=== PATIENT | male | born 1945 | race Caucasian/White ===

== ENCOUNTER 2018-10-28 17:44 | Emergency (ER) | payer MEDICARE, OTHER ==
--- OUTSIDE RECORDS SUMMARY | 2018-10-28 17:53 | XMS REPORT | Continuity of Care Document ---
:1945 External Reference #:[id number] Author Name Ander Bowden MD Address [address] [place] [address] Care Team Providers Name Role Phone Rosas HODGSON, Estrellita Care Team Information Remediation Consultant Unavailable Sunday Carbajal M.D. Primary Care Physician Unavailable Payers Date Identification Numbers Payment Provider Subscriber Effective: Policy Number: [id number] [place] Rei Larson 2018 PayID: [id number] [address] [place] [address] Policy Number: [id number] [employer] Rei Larson Group Number: [id number] [id number] Group Name: [id number] [place] [address] PayID: [id number] Problems Active Problems Provider Date Essential hypertension Ander Bowden MD Onset: 01/31/2009 Family History Date Family Member(s) Observation Comments General Allergies General Cancer General Diabetes General Hearing Loss General Heart Attack General Migraine Social History Type Date Description Comments Sex Unknown Occupation Retired Tobacco Use Start: Unknown Never Smoked Cigarettes Tobacco Use Start: Unknown Never Smoked Cigars Tobacco Use Start: Unknown Never Smoked A Pipe Smokeless Tobacco Never Used Smokeless Tobacco ETOH Use Currently occasionally consumes alcohol Tobacco Use Start: Unknown Patient has never smoked Smoking Status Reviewed: 10/27/18 Patient has never smoked Allergies, Adverse Reactions, Alerts Active Allergies Reaction Severity Comments Date Acetomenophen 01/31/2009 Codeine Sulfate sick 01/31/2009 Tramadol HCL anaphylactic shock Shock 01/31/2009 Adhesives blisters 10/27/2018 Medications Active Medications SIG Qnty Indications Ordering Provider Date Simvastatin 1 by mouth every Unknown 10mg Tablets day Lisinopril 1 by mouth every Sunday Carbajal, 10mg Tablets day M.DLeonardo Metformin HCL Sunday Carbajal, 500mg M.D. Tablets Januvia Sunday Carbajal, 50mg Tablets M.D. History Medications Zocor Unknown - 10/26/2018 Glucophage Unknown - 10/26/2018 Multiple Vitamins Daily Unknown - 10/26/2018 Vital Signs Date Vital Result Comment 10/27/2018 9:47am Weight 150.00 lb Weight 68.040 kg Height 66 inches 5'6" Height in cm's 167.6 cm BMI (Body Mass Index) 24.2 kg/m2 01/31/2009 9:04am BP Systolic 113 mmHg BP Diastolic 79 mmHg Heart Rate 66 /min Respiratory Rate 16 /min Procedures Date Code Description Status 10/27/2018 92037 Fiberoptic Laryngoscopy Completed 01/31/2009 58407 Tympanometry Completed 01/31/2009 81223 Comprehensive Audiogram Completed Encounters Type Date Location Provider Dx Diagnosis Office Visit 10/27/2018 [place] Ander Monk G47.33 Obstructive sleep 9:45a 05/31/07 MD Denn[place] apnea (adult) (pediatric) J34.2 Deviated nasal septum Office 01/31/2009 [place],After Ander Monk 401.9 High Blood Pressure Or Visit 9:00a 05/31/07 MD Denn[place] Hypertension/Unspecified 388.31 Tinnitus, Subjective 389.10 Hearing Loss, Sensorineural/Unspecified
--- OUTSIDE RECORDS SUMMARY | 2018-10-28 17:53 | XMS REPORT | Continuity of Care Document ---
:1945 External Reference #:[id number] Author Name Yvette Kaminski Care Team Providers Name Role Phone Sunday Carbajal MD Primary Care Physician Unavailable Payers Date Identification Numbers Payment Provider Subscriber Policy Number: [id number] Medicare Rei Larson PayID: [id number] [address] [place] [address] Effective: 2013 Policy Number: [id number] [facility] Rei Larson Group Number: [id number] [address] PayID: [id number] [place] [address] Advance Directives Description No Information Available Problems Active Problems Provider Date Premature beats Anthony Morgan M.D. Onset: 06/15/2013 Palpitations Anthony Morgan M.D. Onset: 06/15/2013 Obstructive sleep apnea syndrome Estrellita Pillai DNP, RN, ROBER-BC Onset: Gastroesophageal reflux disease Estrellita Pillai DNP, RN, ROBER-BC Onset: 06/18 Bradycardia Estrellita Pillai DNP, RN, OSTOMY RN-BC Onset: 10/11/2015 Note: Pt reports pulse is always low and recent findings in the 30s noted several months ago. 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 Family History Date Family Member(s) Observation Comments General non contributory Father Colon cancer at age 62 Mother Alzheimer's Disease Siblings 3 younger siblings Social History Type Date Description Comments Sex Unknown Marital Status Single Lives With Alone Occupation counselor Tobacco Use Start: Unknown Never Smoked Cigarettes Smoking Status Reviewed: 10/11/18 Never Smoked Cigarettes ETOH Use Occasionally consumes alcohol ETOH Use Glass of wine a day @ most Tobacco Use Start: Unknown Patient has never smoked Recreational Drug Use Denies Drug Use Exercise Type/Frequency Exercises regularly treadmill x 45 minutes, weight machines Allergies, Adverse Reactions, Alerts Active Allergies Reaction Severity Comments Date Tramadol Anaphylaxis Severe 06/15/2013 Adhesives blisters 06/15/2013 Medications Active Medications SIG Qnty Indications Ordering Provider Date Metformin HCL two tabs two Unknown 02/05/2015 500mg times a day by mouth Lisinopril 1 po qd 90tabs Unknown 10mg Tablets Simvastatin 1 po qhs 90tabs Unknown 10mg Tablets Januvia 1 by mouth Unknown 50mg Tablets every day History Medications Aspirin 1 po qd Unknown - 81mg Tablets 08/23/2018 Multivitamins 1 capsule barry;y 30caps Unknown - Capsules 06/29/2017 Metoprolol Succinate ER 1/2 po qd 90tabs Unknown - 25mg 06/08/2013 Tablets ER 24HR Ibuprofen 200 400 mg every 6 hours Unknown - 200mg Tablets as needed for pain. 09/27/2017 Medications Administered in Office Medication SIG Qnty Indications Ordering Provider Date Technetium TC 99M TetrofAnthony stahl M.D. 07/11/2014 Per Unit Dose Up To 40 Millicuries Injection Depomedrol 80MG Kwame Fuentes M.D. 02/25/2012 Injection Immunizations CPT Code Status Date Vaccine Lot # [id number] Given 06/18/2015 Fluvirin Im 3Yrs And Older Vital Signs Date Vital Result Comment 10/11/2018 11:04am Height 66 inches 5'6" Weight 147.00 lb Heart Rate 60 /min BP Systolic Sitting 106 mmHg right upper arm regular cuff BP Diastolic Sitting 60 mmHg right upper arm regular cuff Respiratory Rate 12 /min O2 % BldC Oximetry 99 % BMI (Body Mass Index) 23.7 kg/m2 08/24/2018 3:40pm Height 66 inches 5'6" Weight 149.00 lb with shoes Heart Rate 60 /min BP Systolic Sitting 112 mmHg Lue reg cuff BP Diastolic Sitting 70 mmHg Lue reg cuff BP Systolic Standing 110 mmHg Lue reg cuff BP Diastolic Standing 70 mmHg Lue reg cuff Respiratory Rate 16 /min BMI (Body Mass Index) 24.0 kg/m2 09/28/2017 11:03am Height 66 inches 5'6" Weight 154.00 lb Heart Rate 64 /min BP Systolic Sitting 112 mmHg BP Diastolic Sitting 72 mmHg Respiratory Rate 14 /min O2 % BldC Oximetry 99 % BMI (Body Mass Index) 24.9 kg/m2 06/30/2017 1:03pm Height 66 inches 5'6" Weight 153.00 lb No shoes Heart Rate 68 /min BP Systolic Sitting 126 mmHg Lue reg cuff BP Diastolic Sitting 70 mmHg Lue reg cuff BP Systolic Standing 122 mmHg Lue reg cuff BP Diastolic Standing 88 mmHg Lue reg cuff Respiratory Rate 15 /min BMI (Body Mass Index) 24.7 kg/m2 Ejection Fraction 50-55% 06/25/2015-echo 07/03/2016 9:40am Height 66 inches 5'6" Weight 157.00 lb Heart Rate 63 /min BP Systolic 110 mmHg BP Diastolic 70 mmHg Respiratory Rate 14 /min O2 % BldC Oximetry 96 % BMI (Body Mass Index) 25.3 kg/m2 06/26/2016 9:50am Height 66 inches 5'6" Weight 157.00 lb w/o shoes Heart Rate 56 /min BP Systolic Sitting 112 mmHg Lue, reg cuff BP Diastolic Sitting 66 mmHg Lue, reg cuff BP Systolic Standing 112 mmHg Lue BP Diastolic Standing 68 mmHg Lue Respiratory Rate 16 /min BMI (Body Mass Index) 25.3 kg/m2 Ejection Fraction 50-55% as of 06/25/15 echo 12/06/2015 1:15pm Height 66 inches 5'6" Weight 160.00 lb Heart Rate 73 /min BP Systolic Sitting 128 mmHg BP Diastolic Sitting 72 mmHg Respiratory Rate 14 /min O2 % BldC Oximetry 97 % BMI (Body Mass Index) 25.8 kg/m2 10/11/2015 11:44am Height 66 inches 5'6" Weight 157.00 lb Heart Rate 38 /min mannual and pulse ox reading BP Systolic 122 mmHg BP Diastolic 76 mmHg Respiratory Rate 14 /min O2 % BldC Oximetry 98 % BMI (Body Mass Index) 25.3 kg/m2 08/13/2015 1:20pm Height 66 inches 5'6" Weight 157.00 lb Heart Rate 64 /min BP Systolic 118 mmHg BP Diastolic 70 mmHg Respiratory Rate 14 /min O2 % BldC Oximetry 86 % BMI (Body Mass Index) 25.3 kg/m2 06/21/2015 2:45pm Height 66 inches 5'6" Weight 157.00 lb Heart Rate 54 /min BP Systolic Sitting 114 mmHg LA reg cuff BP Diastolic Sitting 70 mmHg LA reg cuff BP Systolic Standing 112 mmHg LA reg cuff BP Diastolic Standing 76 mmHg LA reg cuff Respiratory Rate 16 /min BMI (Body Mass Index) 25.3 kg/m2 Ejection Fraction 50-55% 06/07/14 06/18/2015 3:17pm Height 66 inches 5'6" Weight 155.00 lb Heart Rate 50 /min BP Systolic Sitting 122 mmHg BP Diastolic Sitting 72 mmHg Respiratory Rate 18 /min O2 % BldC Oximetry 98 % BMI (Body Mass Index) 25.0 kg/m2 04/12/2015 3:24pm Height 67 inches 5'7" Weight 155.00 lb Heart Rate 69 /min BP Systolic 120 mmHg BP Diastolic 80 mmHg Respiratory Rate 14 /min O2 % BldC Oximetry 98 % BMI (Body Mass Index) 24.3 kg/m2 02/06/2015 9:36am Height 67 inches 5'7" Weight 155.38 lb Heart Rate 57 /min BP Systolic Sitting 128 mmHg BP Diastolic Sitting 68 mmHg Respiratory Rate 18 /min Body Temperature 97.2 F O2 % BldC Oximetry 98 % BMI (Body Mass Index) 24.3 kg/m2 Neck Circumference in inches 14 06/29/2014 3:02pm Height 66 inches 5'6" Weight 152.00 lb with out shoes Heart Rate 44 /min irreg BP Systolic Sitting 124 mmHg LA reg cuff BP Diastolic Sitting 72 mmHg LA reg cuff BP Systolic Standing 116 mmHg LA reg cuff BP Diastolic Standing 70 mmHg LA reg cuff BP Systolic Recheck 124 mmHg Ra reg cuff lying BP Diastolic Recheck 70 mmHg Ra reg cuff lying Respiratory Rate 16 /min BMI (Body Mass Index) 24.5 kg/m2 06/15/2013 10:16am Height 66.5 inches 5'6.50" Weight 153.00 lb Heart Rate 56 /min BP Systolic Sitting 124 mmHg LA reg cuff BP Diastolic Sitting 72 mmHg LA reg cuff BP Systolic Standing 120 mmHg LA BP Diastolic Standing 70 mmHg LA Respiratory Rate 16 /min BMI (Body Mass Index) 24.3 kg/m2 Results Description No Information Available Procedures Date Code Description Status 08/24/2018 60740 EKG Tracing & Interpretation Completed 08/03/2017 95503 ECHO Transthoracic, Real-Time 2D With Doppler And Color Completed Flow 08/03/2017 35122 ECHO Transthoracic, Real-Time 2D With Doppler And Color Completed Flow 07/07/2017 08015 Holter Monitor Review (24 hr) review & interp only Completed 07/06/2017 60227 ECG Monitor/Recording W/Visual Superimposition Scanning Completed 06/30/2017 14847 EKG Tracing & Interpretation Completed 06/29/2017 39703 Destruction ALL Benign Or Premalignant Lesion (Other Than Completed [place] 06/26/2016 85115 EKG Tracing & Interpretation Completed 09/19/2015 93106 Polysomnography Sleep Staging 4+ Parameters W/Cpap Completed 06/25/2015 04209 ECHO Transthoracic, Real-Time 2D With Doppler And Color Completed Flow 06/21/2015 59042 EKG Tracing & Interpretation Completed 05/16/2015 78884 Polysomnography Sleep Staging 4+ Parameters W/Cpap Completed 03/14/2015 56349 Polysomnography Sleep Staging 4+ Parameters Completed 07/11/2014 69335 Myocardial Perfusion Imaging Tomographic (Spect) Multiple Completed Studies 07/11/2014 34029 Stress Test Completed 06/29/2014 82332 EKG Tracing & Interpretation Completed 06/11/2014 61335 Holter Monitoring 24 HR New Completed 06/07/2014 88337 ECHO Transthoracic, Real-Time 2D With Doppler And Color Completed Flow 06/15/2013 38050 EKG Tracing & Interpretation Completed 06/13/2013 60379 ECHO Transthoracic, Real-Time 2D With Doppler And Color Completed Flow 11/24/2012 59493 Holter Monitoring 24 HR New Completed 09/14/2012 84872 Holter Monitoring 24 HR New Completed 09/12/2012 17040 ECHO Transthoracic, Real-Time 2D With Doppler And Color Completed Flow 09/02/2012 93796 EKG Tracing & Interpretation Completed 02/25/2012 95292 Inject/Drain Joint/Bursa Major W/O US Completed 02/02/2012 84648 Rad Shoulder Comp, Min. 2 Views Completed Encounters Type Date Location Provider Dx Diagnosis Office Visit 08/24/2018 [facility] Anthony Morgan, R00.2 Palpitations 4:00p Daniel Blanton I49.3 Ventricular premature depolarization Office Visit 09/28/2017 [facility] And Estrellita G47.33 Obstructive sleep 11:15a [facility]A Pillai, RN, apnea (adult) Daniel ROBER[place] (pediatric) Office Visit 06/30/2017 [facility] Anthony Carpenter R00.2 Palpitations 1:30p Of Daniel Morgan M.D. I49.3 Ventricular premature depolarization Office Visit 06/29/2017 [facility] Eric Nielsen, L57.0 Actinic keratosis 10:00a MD Office Visit 07/03/2016 [facility] Estrellita G47.33 Obstructive sleep 9:45a [facility] Pillai apnea (adult) ROBER Sanchez RN-[place] (pediatric) Office Visit 06/26/2016 [facility] Anthony Carpenter I49.3 Ventricular 10:00a Of Daniel Morgan M.D. premature depolarization R00.2 Palpitations Office Visit 12/06/2015 [facility] And Estrellita G47.33 Obstructive sleep 1:00p [facility] Pillai RN, apnea (adult) Daniel RICHTER[place] (pediatric) Office Visit 10/11/2015 [facility] And Estrellita G47.33 Obstructive sleep 11:30a [facility] Pillai RN, apnea (adult) [facility] ROBER[place] (pediatric) R00.1 Bradycardia, unspecified Office Visit 08/13/2015 [facility] And Estrellita G47.33 Obstructive sleep 1:15p [facility] Pillai apnea (adult) ROBER Sanchez RN[place] (pediatric) Office Visit 06/21/2015 [facility] Anthony Carpenter I49.3 Ventricular 3:00p Of Daniel Morgan M.D. premature depolarization Office Visit 06/18/2015 [facility] And Estrellita G47.33 Obstructive sleep 3:15p [facility] Pillai apnea (adult) ROBER Sanchez RN-[place] (pediatric) K21.9 Gastro-esophageal reflux disease without esophagitis Office Visit 04/12/2015 3:15p Pul[facility]ology And Augie Deshpande G47.33 Obstructive sleep [facility] apnea (adult) Daniel (pediatric) I49.49 Other premature depolarization Office Visit 02/06/2015 9:45a [facility] And Augie Deshpande, 780.79 [facility] Fatigue Other Daniel 785.1 Palpitations Office Visit 06/29/2014 3:15p [facility] Anthony D. 427.1 Paroxysmal Of Sales Department Manager Eddie M.D. Ventricular Tachycardia 427.69 Premature Beats Other 794.31 Electrocardiogram (ECG) (EKG) Abnormal Office Visit 06/15/2013 10:00a [facility] Anthony D. 427.69 Premature Beats Of Sales Department Manager Brand, M.D. Other 785.1 Palpitations Office Visit 12/07/2012 10:30a [facility] Anthony D. 427.69 Premature Beats Of Sales Department Manager Brand, M.D. Other Office Visit 09/16/2012 3:15p [facility] Anthony D. 427.69 Premature Beats Of Sales Department Manager Brand, M.D. Other 427.1 Paroxysmal Ventricular Tachycardia Office Visit 09/02/2012 9:30a [facility] Anthony D. 427.69 Premature Beats Of Sales Department Manager Brand, M.D. Other 794.31 Electrocardiogram (ECG) (EKG) Abnormal 785.1 Palpitations Office Visit 03/18/2012 9:15a Orthopedic Kwame Fuentes, 726.2 [facility]er [facility] Of C.M.ALeonardo Blanton Affections Other Not Elsewhere Class Office Visit 02/25/2012 1:00p Orthopedic Kwame Fuentes, 726.2 [facility] Of CWendyALeonardo Blanton Affections Other Not Elsewhere Class Office Visit 02/02/2012 8:30a Ac Fuentes, 840.7 [facility] C.MLeonardoALeonardo MBetito Labrum Lesions Plan of Treatment Future Appointment(s):12/13/2018 10:30 am - Estrellita Pillai DNP, RN, ROBER- at [facility]10/11/2018 - Estrellita Pillai DNP, RN, OSTOMY RN- BCG47.33 Obstructive sleep apnea (adult) (pediatric)New Orders:Sleep Study, Ordered: 10/11/18Sleep-Homecare, Ordered: 10/11/18Comments:severe sleep apnea AHI 46.5/hour, helga oxygen 93%On BiPAP moderate apneaReferral:Sunday Pinto MD, OtolaryngologyFollow up:2 monthsRecommendations:Continue PAP device , Benefitting and compliant with treatment. Recommend upper airway exam due to increase need for higher pressure to treat your apnea. Recommend in-lab PAP titration study due to fatigue and moderate apnea on BiPAP. Cleaning Wipe off mask daily (baby wipe-no scent, or warm water) Clean mask, tubing, filter, and water chamber weekly in mild no scent dish soap and water. Hang to dry. If you have any sleepiness while driving you MUST avoid operating a vehicle or machinery. If you have difficulty with your equipment, or need to replace your mask or hoses, please contact your homecare agency. A weight change of 20 pounds or more may have an effect on your equipment; if you are experiencing problems please call for an appointment. If you have any further questions, please call the [facility] at [phone].g47.14 Hypersomnia due to medical conditionRecommendations:Lab work for treatable [id number] Other fatigueRecommendations:See assessment #[address] Carbajal as he may want to check for other causes.
[2018-10-28 18:19] VITALS: BP 108/66
[2018-10-28] MEDS ORDERED: DOXYcycline CAP(*) 100 MG PO ONE (18:34)
--- NOTE | 2018-10-28 18:40 | UC ---
Skin Complaint HPI - History of Current Complaint Chief Complaint: UCSkin Time Seen by Provider: 10/28/18 18:17 Stated Complaint: TICK BITE Hx Obtained From: Patient Skin Exposure Onset/Duration: Days Ago Pain Intensity: 1 - Allergy/Home Medications Allergies/Adverse Reactions: Allergies Allergy/AdvReac Type Severity Reaction Status Date / Time Adhesive Tape Allergy Severe Blisters Verified 02/11/15 14:21 tramadol Allergy Severe Anaphylatic Verified 10/28/18 18:24 Shock acetaminophen AdvReac Nausea Verified 10/28/18 18:24 codeine AdvReac Nausea Verified 10/28/18 18:24 Latex, Natural Rubber AdvReac Unknown Verified 10/28/18 18:24 Reaction Details Home Medications: Home Medications Sitagliptin Phosphate [Januvia] 25 mg PO DAILY 10/28/18 [History Confirmed 10/28] PMH/Surg Hx/FS Hx/Imm Hx Previously Healthy: Yes Endocrine History: Diabetes Cardiovascular History: Hypertension - Surgical History Surgical History: Yes Surgery Procedure, Year, and Place: WISDOM TEETH OUT A TEENAGER. LEFT CATARACT, [facility] 2011 - Family History Known Family History: Positive: Unknown, Non-Contributory - Social History Alcohol Use: Weekly Substance Use Type: None Smoking Status (MU): Never Smoked Tobacco Review of Systems All Other Systems Reviewed And Are Negative: Yes Constitutional: Positive: Negative Skin: Positive: Other - tick bite Eyes: Positive: Negative ENT: Positive: Negative Respiratory: Positive: Negative Cardiovascular: Positive: Negative Gastrointestinal: Positive: Negative Genitourinary: Positive: Negative Motor: Positive: Negative Neurovascular: Positive: Negative Musculoskeletal: Positive: Negative Neurological: Positive: Negative Psychological: Positive: Negative Is Patient Immunocompromised?: No Physical Exam - Summary Physical Exam Summary: VITAL SIGNS: Reviewed. GENERAL: Patient is a well developed and nourished male who is lying comfortable in the stretcher. Patient is not in any acute respiratory distress. HEAD AND FACE: No signs of trauma. No ecchymosis, hematomas or skull depressions. No sinus tenderness. EYES: PERRLA, EOMI x 2, No injected conjunctiva, no nystagmus. EARS: Hearing grossly intact. Ear canals and tympanic membranes are within normal limits. MOUTH: Oropharynx within normal limits. NECK: Supple, trachea is midline, no adenopathy, no JVD, no carotid bruit, no c- spine tenderness, neck with full ROM. CHEST: Symmetric, no tenderness at palpation LUNGS: Clear to auscultation bilaterally. No wheezing or crackles. CVS: Regular rate and rhythm, S1 and S2 present, no murmurs or gallops appreciated. ABDOMEN: Soft, non-tender. No signs of distention. No rebound no guarding, and no masses palpated. Bowel sounds are normal. EXTREMITIES: FROM in all major joints, no edema, no cyanosis or clubbing. NEURO: Alert and oriented x 3. No acute neurological deficits. Speech is normal and follows commands. SKIN: Dry and warm, TIck bite in right posterior aspect of the arm Triage Information Reviewed: Yes Appearance: Well-Appearing, No Pain Distress, Well-Nourished Vital Signs: Initial Vital Signs Temp 99.0 F 10/28/18 18:16 Pulse 63 10/28/18 18:16 Resp 16 10/28/18 18:16 BP 108/66 10/28/18 18:16 Pulse Ox 99 10/28/18 18:16 Course/Dx - Course Course Of Treatment: Physical exam and this just an area of erythema of approximately 2 mm x 2 mm. It seems that the tick bite was more than 72 hours therefore patient was given doxycycline 200 mg as a prophylactic treatment. He will be discharged home with follow-up with PCP as needed. - Diagnoses Provider Diagnosis: Tick bite Discharge - Sign-Out/Discharge Documenting (check all that apply): Patient Departure All imaging exams completed and their final reports reviewed: No Studies - Discharge Plan Condition: Stable Disposition: HOME Patient Education Materials: Tick Bite (ED) Referrals: Sunday Carbajal MD [Primary Care Provider] - Additional Instructions: f/u with PCP as needed - Billing Disposition and Condition Condition: STABLE Disposition: Home
== END 2018-10-28 18:45 | disposition home or self-care (01) ==
LOC: UCEAST 17:44
DX: T63.481A Toxic effect of venom of other arthropod, accidental (unintentional), initial encounter (principal); Y92.9 Unspecified place or not applicable; E11.9 Type 2 diabetes mellitus without complications; I10 Essential (primary) hypertension
CPT/HCPCS: 99202; A9270-GY; G0463